=== PATIENT | female | born 1940 | race Caucasian/White ===

== ENCOUNTER 2016-10-01 12:15 | Day surgery (SDC) | payer MEDICARE ==
[~2016-10-01] VITALS: Ht 157.5 cm; Wt 83.9 kg
[~2016-10-01 12:15] MED LIST: 0.9% Sodium Chloride 1,000 ML IV SCH; CETI10CA PO; CHOL200047 PO; CYCL1DRO OCULAR; FLUT16SP NS; HYDR25TA4 PO; LISI-567 PO; METO-272 PO; OMEP40CA36 PO; RANI300C PO; SERT100T9 PO; SIMV40TA5 PO; Sodium Chloride LOK Flush 10 mL Syringe IV PRN; fentaNYL-PF 50 mCg/mL 2 mL Inj IVPUSH PRN
[2016-10-01] MEDS ORDERED: MULT1CAP33 PO (12:49)
[2016-10-01] MEDS ORDERED: GLUC100016 PO (12:49)
[2016-10-01 12:56] VITALS: BP 174/70; PULSE 63; RESP 15; O2SAT 100
[2016-10-01] MEDS ORDERED: 0.9% Sodium Chloride 1,000 ML IV ONE (13:51)
[2016-10-01 14:03] VITALS: BP 149/52; PULSE 62; RESP 14; O2SAT 97
--- NOTE | 2016-10-01 14:10 | ENDO ---
[address] [address] ENDOSCOPY PROCEDURE PATIENT: YARELIS RUEDA : 1940 MR#: [id number] ADMIT: 10/01/2016 JOB ID: [id number] DATE OF SERVICE: 10/01/2016 TYPE OF OPERATION: Esophagogastroduodenoscopy with biopsy. Colonoscopy. PREOPERATIVE DIAGNOSIS(ES): Guaiac positive stools and anemia. POSTOPERATIVE DIAGNOSIS(ES): 1. 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 2. Mild bile reflux. 3. Mild nonerosive gastritis. 4. A 3 mm clean-based, nonbleeding ulcer in the antrum of the stomach. 5. Mild sigmoid diverticulosis. 6. Small internal hemorrhoids. COMPLICATIONS: None. BLOOD LOSS: Minimal. ANESTHESIA: Fentanyl 125 mcg, Versed 6 mg IV administered. DESCRIPTION OF PROCEDURE: After risks and benefits explained to the patient, informed consent was obtained. After anesthesia administered, upper endoscope was then inserted into the mouth, intubating the esophagus, stomach, second portion of duodenum. Mucosa carefully examined. After procedure done, the scope was withdrawn and procedure terminated. Colonoscope was then inserted from the rectum to the cecum. Mucosa carefully examined. Prep of the patient was excellent. After procedure was done, the scope withdrawn, procedure terminated. FINDINGS: On inspecting the esophagus, esophagus was normal without masses, ulcers, or lesions. Z-line located at 40 cm from incisors. Upon entering the stomach, there was mild bile reflux and mild nonerosive gastritis. There was also a 3 mm, clean-based nonbleeding ulcer at the antrum. Retroflexion was normal. Duodenal bulb and 2nd portion were normal and a large duodenal diverticulum was seen at the first portion. Biopsies were taken of the duodenum, antrum, ulcer and body of stomach. Upon inspection of the anus, no masses, hemorrhoids, ulcers, fissures that were seen throughout the entire examination. There was mild sigmoid diverticulosis. No polyps or masses were seen. Retroflexion noted small internal hemorrhoids. IMPRESSIONS: 1. Small internal hemorrhoids. 2. Mild sigmoid diverticulosis. 3. Mild bile reflux. 4. Mild nonerosive gastritis. 5. A 3 mm, clean-based nonbleeding ulcer in the antrum of the stomach. 6. Large duodenal diverticulum in the first portion of the duodenum. RECOMMENDATIONS: 1. Await pathology results. 2. Protonix 40 mg by mouth twice a day. 3. Carafate 1 g by mouth. 4. Follow up in GI clinic as needed.
[2016-10-01 14:23] VITALS: BP 152/59; PULSE 66; RESP 12; O2SAT 97
[2016-10-01 14:25] VITALS: PULSE 69; RESP 12; O2SAT 98
[2016-10-01 14:26] VITALS: BP 122/73; PULSE 65; RESP 14; O2SAT 97
--- NOTE | 2016-10-06 16:25 | PATH ---
SURGICAL PATHOLOGY Attending Physician:Pradeep Lynn MD CASE STATUS: Signed Out PATIENT NAME: YARELIS RUEDA PID: [id number] : 1940 DATE COLLECTED:10/01/2016 00:00 SPECIMEN: 1: Duodenum, Biopsy 2: Gastric, Biopsy 3: Gastric, Biopsy CLINICAL HISTORY: 1 THRU 3 RULE OUT H.PYLORI 1). GASTRIC BIOPSY 2). GASTRIC ULCER 3). DUODENUM BIOPSY FINAL DIAGNOSIS: 1.GASTRIC BIOPSY: GASTRIC BODY-TYPE MUCOSA WITH CHRONIC GASTRITIS. Negative for Helicobacter pylori by immunohistochemistry. Negative for intestinal metaplasia. Negative for dysplasia and malignancy. 2.GASTRIC ULCER, BIOPSY: GASTRIC ANTRAL-TYPE MUCOSA WITH FOCAL MINIMAL ACTIVE GASTRITIS. Negative for Helicobacter pylori by immunohistochemistry. Negative for intestinal metaplasia. Negative for dysplasia and malignancy. 3.DUODENUM, BIOPSY: DUODENAL MUCOSA WITH NO DIAGNOSTIC ABNORMALITY. Negative for active inflammation, features of sprue, dysplasia, and malignancy. ICD10 K29.7 GROSS DESCRIPTION: The specimen is received in three formalin filled containers labeled with the patient's name. 1). The specimen is labeled "gastric" and consists of 2 portions of tissue which aggregate to 0.3 x 0.2 x 0.2 CM. The specimen is entirely submitted in cassette 1A. 2). The specimen is labeled "gastric ulcer" and consists of a 0.2 x 0.2 x 0.1 CM portion of tissue which is entirely submitted in cassette 2A. 3). The specimen is labeled "duodenum" and consists of 2 portions of tissue which aggregate to 0.3 x 0.3 x 0.2 CM. The specimen is entirely submitted in cassette 3A. 10/02/2016DC MICRO DESCRIPTION: Part 1 and 2) An immunohistochemical stain was performed to evaluate for Helicobacter pylori microorganisms. The control stain showed appropriate reactivity. This test was developed and its performance characteristics determined by [facility] [employer]. It has not been cleared or approved by the [place]. Food and Drug Administration. The FDA has determined that such clearance or approval is not necessary. This test is used for clinical purposes. It should not be regarded as investigational or for research. ICD-9 CODES: CPT CODES: 1: 09448, 82085 2: 99163, 05536 3: 51078 Electronically Signed Out Eleno Mederos MD [facility] [address], [place] [address] Technical component performed at [facility], [address], [place], [address]
== END 2016-10-01 23:59 | disposition home or self-care (01) ==
LOC: END 12:15
PROVIDERS: ATTEND Internal Medicine Gastroenterology
DX: K57.30 Diverticulosis of large intestine without perforation or abscess without bleeding (principal); K64.8 Other hemorrhoids; K29.50 Unspecified chronic gastritis without bleeding; K21.9 Gastro-esophageal reflux disease without esophagitis; K25.9 Gastric ulcer, unspecified as acute or chronic, without hemorrhage or perforation; R19.5 Other fecal abnormalities; D64.9 Anemia, unspecified; I10 Essential (primary) hypertension; E78.00 Pure hypercholesterolemia, unspecified; G47.33 Obstructive sleep apnea (adult) (pediatric); M19.90 Unspecified osteoarthritis, unspecified site; Z90.710 Acquired absence of both cervix and uterus; Z85.3 Personal history of malignant neoplasm of breast
CPT/HCPCS: 43239; 45378; 88305; 88342; J2250; J3010; J7030